=== PATIENT | male | born 1995 | race Caucasian/White ===

== ENCOUNTER 2016-11-22 22:09 | Emergency (ER) | payer OTHER ==
[2016-11-22] MEDS ORDERED: KETOROLAC 30 MG/ML 1 ML VIAL IVP STA (22:37)
[2016-11-22] MEDS ORDERED: SODIUM CHLORIDE 0.9% 1,000 ML IV STA (22:37)
[2016-11-22] MEDS ORDERED: SODIUM CHLORIDE 0.9% 500 ML IV STA (22:37)
[2016-11-22] MEDS ORDERED: METOCLOPRAMIDE 5 MG/ML 2 ML VIAL IVP STA (22:37)
[2016-11-22] MEDS ORDERED: DEXAMETHASONE SOD PHOSPHATE 10 MG/ML 1 ML VIAL IV STA (22:38)
[2016-11-22] MEDS ORDERED: MAGNESIUM SULFATE-D5W PMX 1 GM in DEXTROSE/WATER 1 100ML.BAG IVPB ONE (22:39)
--- NOTE | 2016-11-22 22:42 | ED ---
Headache HPI - General Chief Complaint: Headache Stated Complaint: migraine Time Seen by Provider: 11/22/16 22:32 Mode of arrival: ambulatory Limitations: no limitations - History of Present Illness Initial Comments: This 21-year-old white male presents with a complaint of a headache. He states that it feels like his normal migraine headaches is more in the right occipital region. He relates that it came on gradually and was not associated with any neck pain or fever. He did, however, have some left upper extremity and left lower extremity and left facial numbness. He also states that it felt as though his left arm was weak at one time but this has resolved. He also complains of some decreased vision more so in his left eye as compared to his right eye. He has never had these additional symptomatology with his previous migraines. He does have a history of having a brain tumor removed approximately 6 years ago but has not had any complications since that time and was having yearly MRIs up until last year. He is here visiting from [place] with this summer. He denies any other complaints or modifying factors. - Related Data Home Medications Medication Instructions Recorded Confirmed No Known Home Medications [No 11/22/16 11/22/16 Known Home Medications] Allergies Allergy/AdvReac Type Severity Reaction Status Date / Time No Known Allergies Allergy Verified 11/22/16 22:26 Review of Systems ROS Statement: Those systems with pertinent positive or pertinent negative responses have been documented in the HPI. ROS Other: All systems not noted in ROS Statement are negative. Past Medical History Additional Past Medical History / Comment(s): migraines History of Any Multi-Drug Resistant Organisms: None Reported Additional Past Surgical History / Comment(s): brain sx Past Psychological History: No Psychological Hx Reported Smoking Status: Former smoker Past Alcohol Use History: Rare Past Drug Use History: None Reported General Exam - General Exam Comments Initial Comments: GENERAL: The patient is well nourished and well hydrated. VITAL SIGNS: Heart rate, blood pressure, respiratory rate reviewed as recorded in nurse's notes. EYES: Pupils are round and reactive. Extraocular movements are intact. No conjunctival / lid redness or swelling. ENT: No external evidence of injury, swelling, or ecchymosis. Airway is patent. Throat is clear. NECK: Nontender. No swelling or evidence of injury. No subcutaneous emphysema. Trachea is midline. No thyroid mass. HEART: Regular rate and rhythm. Good peripheral pulses. LUNGS/CHEST: Breath sounds clear and equal bilaterally. No rales, rhonchi, or wheezes. No ecchymosis, subcutaneous emphysema, or tenderness. ABDOMEN: Abdomen soft without tenderness. No palpable masses or organomegaly. No peritoneal signs. No abdominal wall swelling or ecchymosis. EXTREMITIES: No extremity tenderness. Normal muscle tone and function. No thoracolumbar tenderness. NEUROLOGIC: Sensation is grossly intact. Cranial nerve exam reveals face is symmetrical, tongue is midline, speech is clear. SKIN: No abrasions or ecchymosis is noted. No induration or masses noted. PSYCHIATRIC: Alert and oriented. Appropriate behavior and judgment. Limitations: no limitations Course Vital Signs 11/22/16 11/22/16 22:14 23:12 Temperature 97.9 F 98.0 F Pulse Rate 67 59 L Respiratory 18 16 Rate Blood Pressure 139/63 125/66 O2 Sat by Pulse 97 99 Oximetry Medical Decision Making - Medical Decision Making The patient is seen and examined. All diagnostics are reviewed. An IV is started and he is given Toradol, Decadron, Reglan, and magnesium. He is given ample fluid hydration. He feels remarkably improved on recheck. The computed tomography scan the brain does show postsurgical changes but no acute process. It is felt that he likely does have an atypical migraine headache. All of his paresthesias and visual complaints have resolved at this time. It is felt as though he is stable for discharge. Return parameters are discussed. He leaves in no identifiable distress. Disposition Clinical Impression: Atypical migraine, Left sided numbness, Abnormal visual perception Disposition: HOME SELF-CARE Condition: Good Instructions: Migraine Headache (ED) Referrals: None,Stated [Primary Care Provider] - 1-2 days Time of Disposition: 00:26
[2016-11-22 23:14] VITALS: RESP 16
--- NOTE | 2016-11-23 00:05 | CT ---
History: Reason: Headache Exam: CT HEAD Without Contrast axial noncontrast images through the brain with multiplanar reformatted images Technique more: CTDI is 60.30 mGy and DLP is 1144.70 mGy-cm. Technique more: This CT exam was performed using one or more of the following dose reduction techniques: automated exposure control, adjustment of the mA and/or kV according to patient size, and/or use of iterative reconstruction technique. Comparison: None available FINDINGS: No intracranial hemorrhage or mass effect. Status post right temporal craniotomy with subadjacent area of right temporal encephalomalacia, correlate with history. The ventricles are within limits and midline. The dial-white differentiation appears preserved. The visualized paranasal sinuses, mastoid and orbits are within limits. IMPRESSION: No intracranial hemorrhage or mass effect. Status post right temporal craniotomy with subadjacent area of right temporal encephalomalacia, correlate with history.
[2016-11-23 00:49] VITALS: BP 119/62; PULSE 78; TEMP 97.8
== END 2016-11-23 00:48 | disposition home or self-care (01) ==
LOC: EC 22:09
DX: G43.909 Migraine, unspecified, not intractable, without status migrainosus (principal); R20.0 Anesthesia of skin; H53.33 Simultaneous visual perception without fusion; Z86.011 Personal history of benign neoplasm of the brain; Z87.891 Personal history of nicotine dependence; Z98.890 Other specified postprocedural states
CPT/HCPCS: 70450; 99284; 96365; 96375 ×3; J1100; J2765; J1885; J3475